=== PATIENT | female | born 1965 | race Caucasian/White ===

== ENCOUNTER → 2023-07-01 | Outpatient (CLI) | payer OTHER, SELFPAY ==
[2023-07-01 16:14] LABS: Vitamin D,25 Hydroxy 46.3 ng/mL
[2023-07-01 16:51] LABS: T4 Free Direct 0.92 ng/dL (0.76-1.46); Thyroid Stim Hormone (TSH) 1.76 uIU/mL (0.358-3.74)
[2023-07-03 16:09] LABS: Thyroglobulin Antibody < 1.0 IU/mL (0.0-0.9); Thyroid Peroxidase AB 9 IU/mL (0-34)
[2023-07-05 19:07] LABS: HPV APTIMA, High Risk Negative (Negative)
== END | disposition home or self-care (01) ==
PROVIDERS: Referring Provider Nurse Practitioner Women's Health; Visit Provider Nurse Practitioner Women's Health
DX: Z12.4 Encounter for screening for malignant neoplasm of cervix (principal); C53.9 Malignant neoplasm of cervix uteri, unspecified; R53.83 Other fatigue
CPT/HCPCS: 36415; 82306; 84439; 84443; 86376; 86800; 87624; 88175; G0145

== ENCOUNTER → 2023-07-08 | Outpatient (CLI) | payer OTHER, SELFPAY ==
--- NOTE | 2023-07-08 12:30 | BI_ITS ---
MAMMOGRAPHY - BILATERAL SCREENING 3-D TOMOSYNTHESIS REASON FOR EXAM: Female, 58 years old. Screening for breast cancer PERTINENT HISTORY: No significant family history. TECHNIQUE: 2-D mammograms and 3-D Tomosynthesis of the breast (s) were performed. CAD was performed. COMPARISON: 07/05/2022 FINDINGS: The breast composition is heterogeneously dense that can obscure small breast masses. Scattered benign calcifications are seen. No dense spiculated masses or suspicious microcalcifications are identified. No architectural distortion is identified. There is no skin thickening or retraction. There has been no significant change since the prior study. BI/SCRN MAMM (CAD)W/DORINDA BILAT IMPRESSION: No mammographic signs of malignancy. Routine yearly mammograms recommended. ASSESSMENT CATEGORY: BIRADS Category 1: Negative. A letter regarding these results will be sent to the patient by the facility within 30 days. FOLLOW UP RECOMMENDATION: Yearly follow up mammogram recommended. (A) Approximately 10% of breast cancers are not detected by mammography. A normal mammogram should not delay biopsy of a clinically suspicious abnormality. Electronically Signed: Dimitri Lamar MD at 14:28 EDT ,
== END | disposition home or self-care (01) ==
LOC: OPBI 12:30
PROVIDERS: Referring Provider Nurse Practitioner Women's Health; Visit Provider Nurse Practitioner Women's Health
DX: Z12.31 Encounter for screening mammogram for malignant neoplasm of breast (principal)
CPT/HCPCS: 77063; 77067

== ENCOUNTER → 2023-07-29 | Outpatient (CLI) | payer OTHER, SELFPAY | END | disposition home or self-care (01) | LOC: PAVLAB 14:06 | PROVIDERS: Referring Provider Obstetrics & Gynecology; Visit Provider Obstetrics & Gynecology | DX: C53.9 Malignant neoplasm of cervix uteri, unspecified (principal) ==

== ENCOUNTER → 2023-08-09 | Outpatient (CLI) | payer OTHER, SELFPAY ==
--- NOTE | 2023-08-09 12:53 | US_ITS ---
STUDY: ULTRASOUND OF THE FEMALE PELVIS - COMPLETE REASON FOR EXAM: Female, 58 years old. History of cervical cancer LMP: Prior hysterectomy. TECHNIQUE: Transabdominal and Transvaginal TECHNICAL QUALITY: Adequate. COMPARISON: None. FINDINGS: The patient is status post hysterectomy The right ovary is non-visualized. The left ovary is non-visualized. There is no fluid in the cul-de-sac. The pre void volume of the bladder was 518 ml. US/Pelvic w/ Transvaginal IMPRESSION: Status post hysterectomy. The ovaries were not visualized due to overlying bowel gas. Electronically Signed: Claudio Persaud MD at 15:22 EDT ,
== END | disposition home or self-care (01) ==
LOC: US 12:52
PROVIDERS: Referring Provider Obstetrics & Gynecology; Visit Provider Obstetrics & Gynecology
DX: C53.9 Malignant neoplasm of cervix uteri, unspecified (principal); Z84.81 Family history of carrier of genetic disease
CPT/HCPCS: 76830; 76856

== ENCOUNTER 2023-09-03 11:35 | Day surgery (SDC) | payer OTHER, SELFPAY ==
[2023-09-03] VITALS (11 sets, daily range): BP systolic 102–125; BP diastolic 63–76; PULSE 54–83; RESP 16–18; TEMP 36.1–36.6; O2SAT 94–99; BMI 28.6
--- NOTE | 2023-09-03 11:59 | PRE.ANES_ITS ---
ASA Classification* ASA Classification ASA Classification: 2 Assessment & Plan Anesthesia* Anesthesia Assessment Anesthesia Assessment: Discussed sedation and/or anesthesia options, risks, benefits, and alternatives with patient/parents/legal guardian/POA. Questions invited. The patient/parents/legal guardian/POA seems to understand and agrees to proceed with anesthesia plan. Reviewed the physical assessment, medical history, allergy history and patient home medications list prior to surgery/procedure/anesthetic and documented any changes. Performed airway and anesthesia risk assessments. 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 When Was Last Pacemaker Check QUESTION #4 FULL TEXT: You/Your Family Experience fever (hyperthermia) with Anesthesia Last Oral Intake Last Oral intake: Last Oral Intake NPO since Meds taken in AM with sips of water? Meds patient instructed to take am of surgery PONV PONV - industrial equipment wirer: PONV - industrial equipment wirer Female Yes 08/28/23 12:15 HX of Motion Sickness No 08/28/23 12:15 HX of N/V After Surgery No 08/28/23 12:15 Non-Smoker Yes 08/28/23 12:15 Duration of Surgery greater No 08/28/23 12:15 than 60 minutes Number of Risk Factors 2 08/28/23 12:15 PONV Score Moderate Risk 08/28/23 12:15 Height & Weight Height & Weight: Anesthesia: Height & Weight Height 5 ft 8 in 08/28/23 14:43 Respiratory Assessment Respiratory Assessment - industrial equipment wirer: Respiratory Tract Infection Hx - industrial equipment wirer Hx Respiratory Tract Infection No 08/28/23 12:15 STOP Sleep Apnea STOP Sleep Apnea - industrial equipment wirer: STOP Sleep Apnea - industrial equipment wirer Hx Hypertension No 08/28/23 12:15 Hx Sleep Apnea No 08/28/23 12:15 CPAP BIPAP Do you snore loudly (louder No 08/28/23 12:15 than talking or can be heard Do you often feel tired/ No 08/28/23 12:15 fatigued/ sleepy during daytime? Has anyone observed you stop No 08/28/23 12:15 breathing during sleep? STOP Results Negative 08/28/23 12:15 QUESTION #5 FULL TEXT : Do you snore loudly (louder than talking or can be heard through closed doors)? 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 Specify any problems Hx of Preganancy in last 3 No 08/28/23 12:15 Months Nurse Filling Out Transfusion VCHRISTIN 08/28/23 12:15 & Questions: Date: 08/28/23 08/28/23 12:15 Time: 12:16 08/28/23 12:15 Patient unable to answer at this time (ie. confused, unrespo /Reproduction History /Reproductive History - industrial equipment wirer: /Reproductive Hx- industrial equipment wirer Hx Now Gestational Age (in weeks): EDC: Hx Hx Para Hx Section SAB No 08/28/23 14:43 Active Medications Active Medications: Current Medications Generic Name Dose Route Start Last Admin Trade Name Freq PRN Reason Stop Dose Admin Lactated Ringer's 1,000 mls @ 15 mls/hr 09/03/23 11:45 IV .Q48H CLAIRE PFSH Medical History Wears glasses Post-menopausal Cancer Eczema Anemia Back pain Migraine headache History of IBS Non-smoker Cervical cancer Arthritis Home Medications ?Medication ?Instructions ?Recorded ?Last Taken ?Type indomethacin 50 mg capsule 50 mg PO DAILY 07/01/23 Unknown History multivitamin 1 tab PO DAILY 07/01/23 Unknown History venlafaxine 75 mg capsule,extended 75 mg PO DAILY #30 caps 08/13/23 Unknown Rx release 24 hr (Effexor XR) fezolinetant 45 mg tablet (Veozah) 45 mg PO DAILY #30 tabs 08/28/23 Unknown Rx Allergy/AdvReac Type Severity Reaction Status Date / Time morphine Allergy Mild Itching Verified 08/28/23 14:39 prednisone Allergy Mild Other Verified 08/28/23 14:39 Family History Mother Breast cancer Sister Breast cancer Father Colon cancer Brother Cancer Throughout whole body, unsure where originated. 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
--- NOTE | 2023-09-03 12:02 | DCINST_ITS ---
Discharge Instructions Diet Discharge Diet: No restrictions Activity Discharge Activity: Return to Normal Activity, May Not Drive (for two weeks or while taking narcotic pain medications.), May Shower and May Take a Tub Bath (in 7 days) May resume sexual activity in: 1 week Weight Bearing Status: Full weight bearing Dressing / Incision Call your doctor if you observe: Using more than 1 pad per hour, Shortness of breath, Chest pain and Uncontrolled pain Suture Line Care: Avoid Pulling/Pushing and Avoid Pinching/Bending Remove Dressing in: 1 week (if present) Cleanse incision/area with: Soap & Water and Keep Dressing Clean & Dry Follow Up Care Please Follow Up With: Davida Moncada DO When: Call to make an appointment with your doctor for a follow up incision check in 1-2 weeks. Test Results: Test results from this visit will be discussed in further detail at your follow- up appointment, if applicable. Discharge Plan Admission Attending Provider: Davida Moncada Primary Care Provider: Saul Williamson Instructions Print Language: Italian Discharge Orders/Prescriptions Prescriptions: No Action indomethacin 50 mg capsule 50 mg PO DAILY Rx Instructions: administer with food or milk multivitamin Tablet 1 tab PO DAILY Veozah 45 mg tablet 45 mg PO DAILY Qty: 30 1RF venlafaxine [Effexor XR] 75 mg capsule,extended release 24hr 75 mg PO DAILY Qty: 30 1RF Referrals / Follow Up: Saul Williamson MD [Primary Care Provider] - Disposition Disposition (needs filled in before D/C Order can be placed): Home, Self Care
--- NOTE | 2023-09-03 12:02 | PCM.HP.BLA ---
History and Physical Date of Admission: 09/03/23 Intake Vital Signs 06/30/2412:44 06/30/2413:41 07/28/2412:10 07/28/2412:10 Height 5 ft 8 in 5 ft 8 in 5 ft 8 in 5 ft 8 in Weight: 188 lb 2 oz 189 lb 8 oz BMI 28.5 28.8 BP 104/62 136/85 H Intake Visit Reasons: SURGICAL CONSULT- CB PT Precinct Captain Required: No Is patient in pain?: No Allergies morphine Allergy (Mild, Verified 07/29/23 13:09) Itchingprednisone Allergy (Mild, Verified 07/29/23 13:09) Other Medications ?Medication ?Instructions ?Recorded ?Confirmed ?Type cyclobenzaprine 10 mg tablet 10 mg PO HS 07/01/23 07/29/23 History indomethacin 50 mg capsule 50 mg PO BID 07/01/23 07/29/23 History multivitamin 1 tab PO DAILY 07/01/23 07/29/23 History venlafaxine 37.5 mg 37.5 mg PO QHS #30 caps 07/15/23 07/29/23 Rx capsule,extended release 24 hr (Effexor XR) Post menopausal: No Patient : No : No PFSH Medical History Cervical cancer Arthritis Surgical History S/P H/O rotator cuff surgery S/P bilateral hip replacements S/p total knee replacement, bilateral S/P hysterectomy Family History Mother Breast cancerSister Breast cancerFather Colon cancerBrother Cancer Throughout whole body, unsure where originated. 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 She has a family history of a mom with breast cancer x 2, sister with breast cancer,father with colon cancer, maternal grandmother and maternal aunt with abdominal cancer, and a personal history of stage 1 or CIS cervical cancer with a history of abdominal hysterectomy that was performed 4 months after her section of her almost 12 pound son. She would like to have her ovaries removed now that she is in menopause. She denies pain or discomfort. She was started on effexor for hot flashes by and states that this has been working extremely well. She was having over 12 hot flashes a day and she is now down to 4 or less. History 5 Elective abortions Hx Para 1 Spontaneous abortions Hx # Term Pregnancies Ectopic pregnancies Hx # Pregnancies Multiple births # of living children 1 Past Pregnancies Del. Date Name GA/Weeks Outcome Route Bth Weight Gen Labor Lgth Anesthesia Del Locatn Provider FOB Unknown Gigi- Unknown Prakash 1997 Delivery Date: Last Updated by: Niya Cardoza Trisomy 13 ROS Const ROS Unobtainable: All systems reviewed & are unremarkable except as noted in H Resp Resp: Reports system reviewed and no additional complaints, except as documented; Denies cough GI GI: Reports as per HPI Psych Psych: Reports system reviewed and no additional complaints, except as documented Exam Const General: cooperative, healthy appearing, comfortable and no acute distress Resp Effort & Inspection: normal respiratory effort Skin General: no rashes or lesions noted Psych Appearance: grossly normal Speech and Movement: speech and movement normal Coding Level of Care Code Off vis,new,level 4 Diagnoses Family history of breast cancer gene mutation in first degree relative Z84.81 Malignant neoplasm of cervix, unspecified site C53.9 Malignant neoplasm of cervix location: unspecified location Hot flashes R23.2 Assessment and Plan Assessment and Plan (1) Family history of breast cancer gene mutation in first degree relative: Status: Acute Comment: Mother and sister. Pt's genetic test is negative (2) Cervical cancer: Status: Acute Qualifiers: Malignant neoplasm of cervix location: unspecified location Qualified Code(s): C53.9 - Malignant neoplasm of cervix uteri, unspecified Comment: 1996- Hysterectomy/Ildefonso (3) Hot flashes: Status: Acute Comment: Avoid estrogen. Failed effexor. Thyroid labs pending. Orders: Orders Pelvic w/ Transvaginal Today C53.9 - Malignant neoplasm of cervix uteri, unspecified, Z84.81 - Family history of carrier of genetic disease Plan pt would like ot repeat her genetic testing. The last time this was done was back at [facility] over 10 years ago plan for pelvic ultrasound and then surgery to remove the ovaries After discussing the patient's diagnosis and treatment plan options, patient wishes to proceed with surgical management. I have discussed with the patient the risks, benefits, and alternatives of the procedure which include but are not limited to risks of anesthesia, bleeding, infection, possible damage to bowel, bladder, or surrounding vasculature which could lead to additional surgery to evaluate any complications. Patient agrees to procedure and wishes to proceed. ACOG/uptodate references given for additional information regarding procedure.
[2023-09-03] MEDS: Lactated Ringers 1,000 ML 15 ML IV (12:33)
[2023-09-03 12:45] LABS: Hematocrit 39.2 % (37-47); Hemoglobin 13.4 g/dL (12.0-15.0); Mean Corp Hgb Conc 34.2 g/dL (32-36); Mean Corpuscular Hgb 28.9 pg (27.0-32.0); Mean Corpuscular Volume 84.5 fL (81-99); Mean Platelet Vol. 10.9 fl (6.2-12.0); Platelet Count 233 K/mm3 (150-450); RBC Distribution Width CV 11.9 % (11.6-14.6); RBC Distribution Width SD 36.1 fl (35.1-43.9); Red Blood Count 4.64 M/mm3 (4.2-5.4)
--- NOTE | 2023-09-03 13:20 | OV_PTH ---
PATIENT: GEORGES BARRETO [place] [facility] [id number] AGE/SX: 58/F ROOM: RE09/03/[address]: Dr. Davida Moncada DO : 1965 BED: DIS: 09/03/2023 SPEC #: [id number] RECD: 09/03/23 16:10 STATUS: WADE SILVANA #: [id number] KODY: 09/03/23 13:[address]: Davida Moncada DEPT: SURGICAL PATHOLOGY RECD BY: Kenzie Juarez ENTERED: 09/04/23 10:15 SP TYPE: OVARY OTHR DR: Dr. Saul Williamson MD Tissues: Right ovary Procedures: Surgery Specimen Level IV HEADER OPERATION: Laparoscopic, salping-oopherectomy PRE-OP DIAGNOSIS: Family history of breast cancer gene mutation in first degree relative, cervical cancer, hot flashes TISSUE SUBMITTED: Right fallopian tube and ovary MICROSCOPIC DIAGNOSIS Right fallopian tube and right ovary, salping-oopherectomy: Fallopian tube, no pathologic diagnosis. A paratubal cyst (1.0cm in greatest dimension). Ovary, no pathologic diagnosis. A cystic [place]ard rest adjacent to the ovary (1.0cm in greatest dimension). REMI/ 09/05/2023 MICROSCOPIC DESCRIPTION Slides are reviewed. GROSS DESCRIPTION Received in fixative is one container labeled with the patient's name and designated Right fallopian tube and ovary. The specimen consists of right fallopian tube and right ovary. Fallopian tube measures 6.0cm in length and 0.6cm in diameter. Focal tubo-ovarian adhesions are noted. Fimbrial end is identified. A paratubal cyst is noted filled with mucoid material measuring 1.0cm in greatest dimension. The ovary measures 2.5 x 2.0 x 0.8cm. A brownish nodule is noted on the surface measuring 1.0cm in greatest dimension. Production Stage Manager sections are submitted in four cassettes as follows: 1- fallopian tube, fimrbal end is submitted in entirety, 2- paratubal cyst, 3 and 4- ovary, nodule on surface of the ovary, entirely submitted and 95% of ovary is submitted. REMI/ 09/04/2023 TC:5 CPT:41287
[2023-09-03] MEDS: Bupivacaine Mpf 0.5% 30 ML VIAL (14:04)
--- NOTE | 2023-09-03 14:27 | PCM.POST.ANE ---
Anesthesia: Postop Eval I Current Vital Signs Temperature: 97.7 F Pulse Rate: 83 Blood Pressure: 125/72 Respiratory Rate: 16 Pulse Ox: 94 Oxygen Delivery Method: Nasal Cannula Oxygen Flow Rate (L/min): 2 Assessment Airway patent: Yes Spontaneous unlabored respirations: Yes Mental status: Awake and Calm nausea: No Vomiting: No Anesthesia Complication: No Fluid Hydration Crystalloid volume administer (ml): 700 Total IV fluid infused: 700 Progress Note Anesthesia document: Postop Eval 1 completed: Yes
--- NOTE | 2023-09-03 14:30 | OP.PCM_ITS ---
Problems Associated Problem List Diagnoses (1) Hot flashes: (2) Climacteric: (3) Family history of malignant melanoma: (4) Family history of colon cancer in father: (5) Family history of breast cancer gene mutation in first degree relative: (6) Cervical cancer: Report of Operation Date of Procedure: 09/03/23 Pre-Operative Diagnosis: family history of breast cancer gene mutation, desires risk reducing oophorectomy Post-Operative Diagnosis: family history of breast cancer gene mutation, desires risk reducing oophorectomy Surgery/Procedure Performed:: laparoscopic right salpingo-oophorectomy, lysis of adhesions Description of Surgical Findings:: marked adhesions of the descending colon and epiploica to the side wall of the pelvis. Surgeon: Davida Moncada sales recruiting coordinator: Martir Rodriguez Type of Anesthesia: General Special Medications: none Specimen's removed: right ovary and fallopian tube Drains: none Estimated Blood Loss (mL): 30cc Description of Procedure: Reason for surgery: This is a 58 y/o who presents to my office with desire for risk reducing surgery. Her mother and sister carry a gene mutation that incrases the risk for breast cancer. Electa was tested negative for this mutation, but desires bilateral oophorectomy to further reduce her risk of cancer. She has undergone a hysterectomy due to cervical cancer and believes she has both of her ovaries left. Ultrasound was inconclusive. The decision is to perform a diagnostic laparoscopy and removal of remaining reproductive structures. Patient was taken in the operating room and was placed under general anesthesia was prepped and draped in normal sterile fashion in the dorsal lithotomy position. Bladder was drained of clear urine and SCDs were on preoperatively. Uterus was sounded and a uterine manipulator was placed after dilating. Attention was then paid to the abdominal portion of the procedure and the umbilicus was elevated with towel clamps and injected with Marcaine and after a 5 mm incision was made and a 5 mm laparoscopic trocar was inserted in the abdomen under direct visualization. The abdomen was insufflated with CO2 gas. A left lower quadrant 5 mm trocar was inserted in the abdomen and a 3rd 5 mm trocar was inserted adjacent to the umbilicus, creating a triangular approach. The Uterus was noted to be surgically absent and marked adhesions of the epiploi ca and descending colon were attached to the left pelvic side wall, obscuring view of the left ovary. The right ovary was also adherent to the right pelvic side wall, however the fallopian tube was easily visualized. The tube was grasped with laparoscopic grasper device and the ovary was dissected off of the pelvic side wall without complications using blunt dissection as well as cautery using the ligasure. The IP ligament was cauterized and cut and the fallopian tube and ovary were removed and placed into a 5mm endocatch bag. Excellent hemostasis was noted. The specimen was removed through the 5 mm laparoscopic port site without difficulty, as it was found to be very small. Attempt was made to start taking down adhesions from the bowel and left side wall with little success and bleed was starting to excelsior picker. The patient's was called in the waiting room to discuss aborting the procedure on the left due to risk to bowel injury and he desired to abort. The Liver and upper abdomen were visualized notably within normal limits and no other gross abnormalities were seen in the abdomen. Hemoblast was applied to the areas of slight bleeding, which included the fine adhesions on the side wall and bowel epiploica. All instruments removed from the abdomen after gas was desufflated. Port sites were closed with 3-0 Monocryl Steri's and op sites were applied. All instruments removed from the vagina and patient was awoken and taken recovery in stable condition. Complications none Admit VTE Documentation VTE Present on Admission: No VTE Mechan Device Prophylaxis: SCD's VTE Pharm Prophylaxis ordered?: No Multi Select Codes Urinary/Genital Urinary/Genital CPT Codes: 64384 Laproscopic BS/O and Other Procedure See Report
--- NOTE | 2023-09-03 15:22 | POSTOPAN2_ITS ---
Anesthesia Postop Eval I Sum Postop Eval Completion status Anesthesia document: Postop Eval 1 completed: Yes Anesthesia Postop Eval I Summary Anesthesia Postop Eval I Summary: Anesthesia Postop Eval I: Assessment Summary Airway patent Yes 09/03/23 14:28 OPHTHALMIC SURGEON.SCHR Spontaneous unlabored Yes 09/03/23 14:28 OPHTHALMIC SURGEON.SCHR respirations Mental status Awake,Calm 09/03/23 14:28 OPHTHALMIC SURGEON.SCHR nausea No 09/03/23 14:28 OPHTHALMIC SURGEON.SCHR Vomiting No 09/03/23 14:28 OPHTHALMIC SURGEON.[facility] Anesthesia Postop Eval I: Fluid Summary Crystalloid volume administer 700 09/03/23 14:28 OPHTHALMIC SURGEON.SCHR (ml) Colloids volume administered ( ml) Blood Product volume administered (ml) Total IV fluid infused 700 09/03/23 14:28 OPHTHALMIC SURGEON.[facility] Anesthesia Postop Eval I: Summary Notes Anesthesia Complication No 09/03/23 14:28 OPHTHALMIC SURGEON.[facility] Anesthesia Complication Comment: Post-operative progress note Anesthesia: Postop Eval II Evaluation Mental status: Awake and Calm Pain Level: 1 nausea: No Vomiting: No Complications Anesthesia Complication: No
--- NOTE | 2023-09-03 15:22 | PCM.POSTANE2 ---
Anesthesia Postop Eval I Sum Postop Eval Completion status Anesthesia document: Postop Eval 1 completed: Yes Anesthesia Postop Eval I Summary Anesthesia Postop Eval I Summary: Anesthesia Postop Eval I: Assessment Summary Airway patent Yes 09/03/23 14:28 MANAGER MEDICAL DEVICE.SCHR Spontaneous unlabored Yes 09/03/23 14:28 MANAGER MEDICAL DEVICE.SCHR respirations Mental status Awake,Calm 09/03/23 14:28 MANAGER MEDICAL DEVICE.SCHR nausea No 09/03/23 14:28 MANAGER MEDICAL DEVICE.SCHR Vomiting No 09/03/23 14:28 MANAGER MEDICAL DEVICE[facility] Anesthesia Postop Eval I: Fluid Summary Crystalloid volume administer 700 09/03/23 14:28 MANAGER MEDICAL DEVICE.SCHR (ml) Colloids volume administered ( ml) Blood Product volume administered (ml) Total IV fluid infused 700 09/03/23 14:28 MANAGER MEDICAL DEVICE.[facility] Anesthesia Postop Eval I: Summary Notes Anesthesia Complication No 09/03/23 14:28 MANAGER MEDICAL DEVICE.[facility] Anesthesia Complication Comment: Post-operative progress note Anesthesia: Postop Eval II Evaluation Mental status: Awake and Calm Pain Level: 1 nausea: No Vomiting: No Complications Anesthesia Complication: No
[2023-09-03] MEDS: HYDROcodone Bitartrate/Apap 5/325 Tablet PO (15:54)
== END 2023-09-03 16:35 | disposition home or self-care (01) ==
LOC: SDC 11:37 → AC 11:39
PROVIDERS: Referring Provider Obstetrics & Gynecology; Visit Provider Obstetrics & Gynecology
PROC: (CPT 58720; principal; 2023-09-03 13:05)
DX: N83.201 Unspecified ovarian cyst, right side (principal); Z90.710 Acquired absence of both cervix and uterus; Z78.0 Asymptomatic menopausal state; Z80.3 Family history of malignant neoplasm of breast; Z85.41 Personal history of malignant neoplasm of cervix uteri; Z84.81 Family history of carrier of genetic disease; N83.8 Other noninflammatory disorders of ovary, fallopian tube and broad ligament; N88.1 Old laceration of cervix uteri
CPT/HCPCS: 58661; 00840; 85027; 86850; 86900; 86901; 88305; J7120; J2405

== ENCOUNTER → 2024-08-03 | Outpatient (CLI) | payer OTHER, SELFPAY ==
--- NOTE | 2024-08-03 13:45 | BI_ITS ---
EXAM: SCRN MAMM (CAD)W/DORINDA BILAT DATE: 08/03/2024 CLINICAL HISTORY: F, Age 59 y/o , SCREEN FOR BREAST CANCER Sister with breast cancer. Mother with breast cancer. BREAST CANCER RISK ASSESSMENT: Not assessed. TECHNIQUE: Bilateral screening digital breast tomosynthesis with 2D and 3D images. Computer aided detection. COMPARISON: Prior exam(s) dated July 08, 2023.. FINDINGS: TISSUE DENSITY: The breast tissue is composed of scattered area of fibroglandular density. Bilateral Breast Mammographic Findings: No significant masses, calcifications or other abnormalities are identified. No suspicious masses, areas of developing architectural distortion, or suspicious calcifications. There has been no significant interval change. BI/SCRN MAMM (CAD)W/DORINDA BILAT IMPRESSION: OVERALL FINAL ASSESSMENT: BIRADS 1 NEGATIVE RECOMMENDATION: Routine annual follow-up in 1 Year A letter with findings and recommendations will be mailed to the patient. Reading Location: [place] [id number]
== END | disposition home or self-care (01) ==
PROVIDERS: Referring Provider Obstetrics & Gynecology; Visit Provider Obstetrics & Gynecology
DX: Z12.31 Encounter for screening mammogram for malignant neoplasm of breast (principal); Z80.3 Family history of malignant neoplasm of breast
CPT/HCPCS: 77063; 77067